=== PATIENT | male | born 1985 | race African-American/Black ===

== ENCOUNTER 2022-02-21 21:51 | Emergency (ER) | payer SELFPAY ==
[~2022-02-21] VITALS: Ht 175.3 cm; Wt 79.8 kg
[2022-02-21 21:58] VITALS: BP 131/63
--- NOTE | 2022-02-21 22:32 | NUR ---
Dr. Ascencio examining patient.
--- NOTE | 2022-02-21 22:49 | NUR ---
Patient ambulated to bed 12
[2022-02-21] MEDS ORDERED: IBUPROFEN 800 MG TAB PO ONE (22:55)
[2022-02-21] MEDS ORDERED: PANTOPRAZOLE 40 MG TABEC PO ONE (22:55)
--- NOTE | 2022-02-21 22:58 | NUR ---
RAD AT BEDSIDE.
--- NOTE | 2022-02-21 23:12 | NUR ---
36 YO M BIB SELF WITH C/C OF 4/10 NONRAD STERNAL CHEST PAIN [id number]. PT STATES HE FEELS SLIGHTLY OUT OF BREATH. DENIES CARDIAC HISTORY. 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
[2022-02-22] MEDS ORDERED: PANT40EC PO (00:20)
--- NOTE | 2022-02-22 00:24 | NUR ---
PT APPEARS TO BE RESTING, EQUAL RISE AND FALL OF CHEST WALL. VSS. PT OPENS EYES TO SOUND. ALL NEEDS MET AT THIS TIME. BED LOCKED IN LOWEST POSITION. SIDE RAILS X2 FOR SAFETY.
[2022-02-22 02:48] VITALS: BP 100/57
--- NOTE | 2022-02-22 02:48 | NUR ---
Patient discharged with v/s stable. Written and verbal after care instructions given and explained. Patient alert, oriented and verbalized understanding of instructions. Ambulatory with steady gait. All questions addressed prior to discharge. ID band removed. Patient advised to follow up with PMD. Rx of PROTONIX given. Patient educated on indication of medication including possible reaction and side effects. Opportunity to ask questions provided and answered.
== END 2022-02-22 02:48 | disposition home or self-care (01) ==
LOC: MED 21:51
DX: R07.89 Other chest pain (principal); R09.89 Other specified symptoms and signs involving the circulatory and respiratory systems; Z79.899 Other long term (current) drug therapy
CPT/HCPCS: 71045; 93005; 99283; Q0092